=== PATIENT | male | born 1960 | race Caucasian/White ===

== ENCOUNTER → 2017-03-10 14:22 | Outpatient (CLI) | payer OTHER ==
[2016-06-08 16:22] VITALS: BMI 34.9
[~2017-03-10 14:22] MED LIST: ADVAIR 100/501 DISK INH; BAYER CHEWABLE81 MG PO; LIPITOR40 MG PO; NORVASC5 MG PO; OMEPRAZOLE20 M1 PO; PRINIVIL10 MG PO; VENTOLIN HFA18 GM INH
== END | disposition home or self-care (01) ==
LOC: D.LABREF 14:22
DX: Z00.00 Encounter for general adult medical examination without abnormal findings (principal)

== ENCOUNTER 2017-05-24 08:02 | Day surgery (SDC) | payer OTHER ==
[~2017-05-24] VITALS: Ht 180.3 cm; Wt 113.6 kg
--- NOTE | ~2017-05-24 | OP ---
PATIENT NAME: DEIDRA COLLINS MEDICAL RECORD: [id number] :60 LOCATION:.[facility] ADMISSION DATE: SURGEON: MARLENY QUIÑONES MD DATE OF OPERATION: 05/24/2017 PREOPERATIVE DIAGNOSES: 1. Volume gastroesophageal reflux. 2. History of colon polyps in need of a surveillance colonoscopy. POSTOPERATIVE DIAGNOSES: 1. Volume gastroesophageal reflux. 2. History of colon polyps in need of a surveillance colonoscopy. 3. 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 4. Numerous small gastric ulcers in the antrum. None appeared to have bled recently. One of these was raised and had a crater and was on the posterior aspect of the stomach. 5. A 4 cm ascending colon polyp on a fold. 6. Large hiatal hernia. PROCEDURES: Epinephrine injection and then endoscopic tattooing. The risks, possible complications and alternatives to the procedure were explained to the patient. He elects to proceed. OPERATIVE COURSE: The patient was conveyed to the endoscopy suite electively on 05/24/2017. IV sedation was induced by the anesthesia staff. A bite block was inserted. A gastroscope was inserted into the mouth. It was advanced easily into the hypopharynx. The esophagus was easily intubated as were the stomach and duodenum. Upon withdrawal, retroflexed and angulus views were obtained. Cold endoscopic antral biopsies were obtained. I then withdrew into the hiatal hernia. I examined the esophagogastric junction. Biopsies were obtained at the esophagogastric junction to rule out Gamino esophagus. The endoscope was then withdrawn under direct vision. The patient was turned 180 degrees and placed in the Alejandro position. A digital rectal examination was performed. The prostate was slightly enlarged, but was without nodules and was symmetric. A colonoscope was inserted through the anus. It was easily advanced to the cecum. I irrigated and aspirated extensively. The prep was adequate. I started to withdraw the endoscope. I withdrew into the ascending colon. There was a 4 cm semi-pedunculated polyp. I advanced a sclerotherapy needle. I injected epinephrine at the base of the polyp for hemostasis. Utilizing the snare polypectomy, a piecemeal snare polypectomy was performed. I then took some extra cold endoscopic biopsies as well as hot biopsies of the remaining polyp. The entire polyp appeared to have been ablated. In order to better identify this polyp during his next endoscopy, endoscopic tattooing was indicated. I advanced a sclerotherapy needle. A submucosal injection of 6 cc of methylene blue was performed. The sclerotherapy needle was then removed. I advanced an endoscopic retrieval net. I grabbed 2 of the pieces of the polyp that had been snared off. These were both grabbed within the same bag. I slowly withdrew the endoscope. I dragged the folds. The pullback was greater than a 14-minute pullback. The endoscope was withdrawn through the anus and the specimens were collected. 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 There was no evidence of regrowth of the tubular adenoma at 50 cm. TRANSINT:[id number] Voice Confirmation ID: [id number] DOCUMENT ID: [id number] MARLENY QUIÑONES MD CC: CLINT JOHNSON DO [id number] DICTATION DATE: 05/24/17 1109 AUTOMOBILE DETAILER: 05/24/17 1824 [facility] 05/24/17 [facility] [address] [place] [address]
--- NOTE | ~2017-05-24 | HP ---
PATIENT: DEIDRA COLLINS MEDICAL RECORD: [id number] ACCOUNT: [id number] LOCATION:[facility] : 60 ADMISSION DATE: 05/24/17 HISTORY AND PHYSICAL EXAMINATION PREOPERATIVE DIAGNOSIS: Colon polyps. HISTORY OF PRESENT ILLNESS: The patient was initially scheduled for an EGD and colonoscopy. However, on today's schedule he is only scheduled for colonoscopy. He states that he was preapproved by the insurance company to do both an upper and lower. The patient has sleep apnea. He has a volume reflux. The patient had aspiration pneumonia. He has volume reflux. He frequently wakes up in the middle of the night with food or bilious taste in his mouth. He signed for a surveillance colonoscopy as well. I am going to plan for an EGD and colonoscopy. ALLERGIES: No known drug allergies. HOME MEDICATIONS: Albuterol, Norvasc, aspirin, Lipitor, Advair, lisinopril, as well as omeprazole. His reflux is not controlled on omeprazole. PAST MEDICAL AND SURGICAL HISTORY: Sleep apnea, asthma and hypertension. SOCIAL HISTORY: Ex-smoker. REVIEW OF SYSTEMS: Negative for CVA or seizures. Negative for diabetes or thyroid problems. PHYSICAL EXAMINATION: GENERAL: The patient does not appear acutely ill. He does not appear chronically ill. VITAL SIGNS: Reviewed. HEAD: External ears appear normal. EYES: Extraocular movements are intact. NECK: Trachea is midline. CHEST: No intercostal retractions. PULMONARY: Nonlabored, no stridor. ABDOMEN: Nontender. EXTREMITIES: No peripheral cyanosis. IMPRESSION: 1. Volume gastroesophageal reflux disease. 2. History of colon polyps, in need of surveillance colonoscopy. PLAN: Will be EGD and surveillance colonoscopy. TRANSINT:[id number] Voice Confirmation ID: [id number] DOCUMENT ID: [id number] HISTORY AND PHYSICAL [id number] DEIDRA COLLINS MARLENY QUIÑONES MD CC: [id number] DICTATION DATE: 05/24/17 1003 TECH WRITER: 05/24/17 1047 [facility] [address] [place] [address]
[2017-05-24 08:36] LABS: BASOPHILS 0.4 % (0-2); EOSINOPHILS 2.7 % (0-7); HEMATOCRIT 44.9 % (42.0-54.0); HEMOGLOBIN 15.7 g/dL (13.5-17.5); IMMATURE GRANULOCYTES 0.2 % (0-5); LYMPHOCYTES 12.9 % (15-50); MCH 32.5 pg (26.0-34.0); MEAN PLATELET VOLUME 10.3 fL (7.4-10.4); MONOCYTES 12.9 % (2-11); NEUTROPHILS 70.9 % (40-80); PLATELET COUNT 261 10x3/uL (130-400); RBC 4.83 10x6/uL (4.20-6.10); RDW 12.3 % (11.5-14.5); WBC 12.1 10x3/uL (4.8-10.8)
[2017-05-24 09:02] LABS: ANION GAP 15.8 mmol/L (8-16); CALCIUM 9.3 mg/dL (8.5-10.1); CARBON DIOXIDE 23.8 mmol/L (21.0-32.0); CREATININE - SERUM 1.2 mg/dL (0.6-1.3); POTASSIUM - SERUM 3.6 mmol/L (3.5-5.1)
[2017-05-24 09:09] VITALS: BP 121/70; Ht 180.3 cm; Wt 113.6 kg
--- NOTE | 2017-05-24 10:57 | NUR ---
[id number] INJECT 7.5CC EPINEPHERINE, 6CC RENZO INK.
--- NOTE | 2017-05-24 15:15 | NUR ---
1210 IV DC'ED WITH CATH INTACT BY Erasto AMIN. Erasto URIBE R.N.
--- NOTE | 2017-05-24 15:16 | NUR ---
1250 DRESSED, AWAKE & ALERT. GIVEN DISCHARGE INSTRUCTIONS INCLUDING RX: FLAGYL, MED REC., SHEET LISTING NSAIDS TO AVOID, & D/C INSTRUCTIONS SHEET POST ENDOSCOPIC PROCEDURES. PT VOICED UNDERSTANDING. INSTRUCTED TO CALL DR. QUIÑONES'S OFFICE FOR F/U APPT.(OFFICE CLOSED @ THIS TIME). PT VOICED UNDERSTANDING. TO PRIVATE CAR PER WHEELCHAIR BY VOLUNTEER. HOME WITH OPAL COLLINS. Erasto URIBE R.N.
== END 2017-05-24 12:50 | disposition home or self-care (01) ==
LOC: D.OPS 08:02
PROVIDERS: Anesthesiology
DX: D12.2 Benign neoplasm of ascending colon (principal); K21.0 Gastro-esophageal reflux disease with esophagitis; K44.9 Diaphragmatic hernia without obstruction or gangrene; K25.9 Gastric ulcer, unspecified as acute or chronic, without hemorrhage or perforation; Z01.812 Encounter for preprocedural laboratory examination